=== PATIENT | female | born 1960 | race Caucasian/White ===

== ENCOUNTER 2017-09-29 06:41 | Day surgery (SDC) | payer OTHER ==
[~2017-09-29 06:41] MED LIST: LIPITOR20 MG PO
[2017-09-29] MEDS ORDERED: PERCOCET 5-3251 EACH PO (11:54)
== END 2017-09-29 13:49 | disposition home or self-care (01) ==
LOC: CIR.AMB 06:41
DX: N95.0 Postmenopausal bleeding (principal)